=== PATIENT | female | born 1955 | race Two or more races ===

== ENCOUNTER 2018-05-25 20:43 | Emergency (ER) | payer OTHER ==
--- NOTE | 2018-05-25 21:17 | PDOC ---
Rapid Medical Evaluation Chief Complaint: Lightheaded Time Seen by Provider: 05/25/18 21:16 Medical Evaluation: Allergies Allergy/AdvReac Type Severity Reaction Status Date / Time No Known Allergies Allergy Verified 10/27/15 18:38 05/25/18 21:16 I performed a brief in person evaluation. CC: Dizziness HPI: Pt is a 63 Yo female with a hx of HTN who states over the past 2 days she has felt dizzy. PE: Skin: Clear Lungs: Clear Heart: RRR MS: Moves all extremities without difficulty Neuro: Alert Psych: Appropriate affect Pt has basic labs and EKG. Pt will go to main ED for further evaluation. Discharge Disposition - Diagnosis Dizziness - Referrals Referrals: Sara Galindo MD [Primary Care Provider] - - Patient Instructions - Post Discharge Activity
[2018-05-25 21:19] VITALS: TEMP 98.1; BMI 26.4
[2018-05-25 21:45] LABS: BASO % 0.4 % (0-2.0); EOS % 2.4 % (0-4.5); HEMATOCRIT 34.9 % (32.4-45.2); HEMOGLOBIN 12.2 GM/dL (10.7-15.3); MCH 29.5 pg (25.7-33.7); MCHC 35.1 g/dl (32.0-36.0); MEAN CELL VOLUME 84.3 fl (80-96); MONO % 6.6 % (3.8-10.2); NEUT % 48.6 % (42.8-82.8); PLATELET COUNT 206 K/MM3 (134-434); RBC 4.14 M/mm3 (3.60-5.2); RDW 14.8 % (11.6-15.6); WHITE BLOOD COUNT 7.5 K/mm3 (4.0-10.0)
[2018-05-25 22:02] LABS: URINE APPEARANCE CLEAR; URINE BILIRUBIN NEGATIVE (<2.0 mg/dL); URINE COLOR COLORLESS; URINE GLUCOSE (UA) NEGATIVE (NEGATIVE); URINE KETONE NEGATIVE (NEGATIVE); URINE LEUK ESTERASE NEGATIVE (NEGATIVE); URINE NITRITE NEGATIVE (NEGATIVE); URINE PROTEIN NEGATIVE (NEGATIVE); URINE UROBILINOGEN NEGATIVE mg/dL (0.2-1.0)
[2018-05-25 22:06] LABS: ALBUMIN 3.9 g/dl (3.4-5.0); ALK PHOS 70 U/L (45-117); ANION GAP 8 MMOL/L (8-16); BILIRUBIN,TOTAL 0.2 mg/dL (0.2-1); BLOOD UREA NITROGEN 12 mg/dL (7-18); CALCIUM 8.8 mg/dL (8.5-10.1); CHLORIDE 106 mmol/L (98-107); CO2 28 mmol/L (21-32); CREATININE 0.7 mg/dL (0.55-1.3); GLUCOSE,RANDOM 113 mg/dL (74-106); POTASSIUM 3.5 mmol/L (3.5-5.1); SGOT/AST 23 U/L (15-37); SGPT/ALT 33 U/L (13-61); SODIUM 142 mmol/L (136-145); TOT PROT 8.1 g/dl (6.4-8.2)
--- NOTE | 2018-05-25 22:56 | PDOC ---
History of Present Illness - General Chief Complaint: Lightheaded Stated Complaint: DIZZY Time Seen by Provider: 05/25/18 21:16 History Source: Patient - History of Present Illness Initial Comments: 05/25/18 23:45 63 year old female dizziness x 3 days worse with laying down, c/o numbness to left and leg x 3 days. denies Past History - Past Medical History Allergies/Adverse Reactions: Allergies Allergy/AdvReac Type Severity Reaction Status Date / Time No Known Allergies Allergy Verified 05/25/18 21:19 Home Medications: Ambulatory Orders Losartan 50Mg/Hctz 12.5MG [Hyzaar -] 1 tab PO DAILY 05/25/18 Metformin HCl [Metformin HCl ER] 500 mg PO BID 05/25/18 Ranitidine [Zantac -] 150 mg PO DAILY 05/25/18 COPD: No HTN: Yes - Suicide/Smoking/Psychosocial Hx Smoking History: Never smoked Have you smoked in the past 12 months: No Hx Alcohol Use: No Drug/Substance Use Hx: No Substance Use Type: None *Physical Exam - Vital Signs Last Vital Signs Temp Pulse Resp BP Pulse Ox 98.1 F 67 18 151/67 100 05/25/18 21:17 05/25/18 21:17 05/25/18 21:17 05/25/18 21:17 05/25/18 21:17 - Physical Exam General Appearance: Yes: Appropriately Dressed Respiratory/Chest: positive: Lungs Clear, Normal Breath Sounds Extremity: positive: Normal Capillary Refill, Normal Inspection, Normal Range of Motion Neurologic: positive: buyer agent II-XII NML intact, Fully Oriented, Alert, Normal Mood/ Affect, Normal Response, Motor Strength 5/5, Other (+ sara chacon pike). negative : Sensory Deficit Moderate Sedation - Procedure Monitoring Vital Signs: Procedure Monitoring Vital Signs Temperature 98.1 F 05/25/18 21:17 Pulse Rate 67 05/25/18 21:17 Respiratory Rate 18 05/25/18 21:17 Blood Pressure 151/67 05/25/18 21:17 O2 Sat by Pulse Oximetry (%) 100 05/25/18 21:17 ED Treatment Course - LABORATORY CBC & Chemistry Diagram: 05/25/18 21:33 05/25/18 21:33 - ADDITIONAL ORDERS Additional order review: Laboratory Results 05/25/18 05/25/18 21:46 21:33 Sodium 142 Potassium 3.5 Chloride 106 Carbon Dioxide 28 Anion Gap 8 BUN 12 Creatinine 0.7 Creat Clearance w eGFR > 60 Random Glucose 113 H Calcium 8.8 Total Bilirubin 0.2 AST 23 ALT 33 Alkaline Phosphatase 70 Creatine Kinase 266 H Creatine Kinase Index 2.1 CK-MB (CK-2) 5.6 H Troponin I < 0.02 Total Protein 8.1 Albumin 3.9 Urine Color Colorless Urine Appearance Clear Urine pH 6.0 Ur Specific [place] 1.004 L Urine Protein Negative Urine Glucose (UA) Negative Urine Ketones Negative Urine Blood Negative Urine Nitrite Negative Urine Bilirubin Negative Urine Urobilinogen Negative Ur Leukocyte Esterase Negative 05/25/18 21:33 RBC 4.14 MCV 84.3 MCHC 35.1 RDW 14.8 MPV 9.0 Neutrophils % 48.6 Lymphocytes % 42.0 H D Monocytes % 6.6 Eosinophils % 2.4 Basophils % 0.4 *DC/Admit/Observation/Transfer Diagnosis at time of Disposition: Dizziness - Referrals Referrals: Sara Galindo MD [Primary Care Provider] - - Patient Instructions - Post Discharge Activity
[2018-05-26 00:25] VITALS: BP 154/95; PULSE 78
[2018-05-26] MEDS ORDERED: MECLIZINE HCL 25 MG TABLET (FP) PO ONE ×2 (01:14→01:44)
--- NOTE | 2018-05-26 01:14 | PDOC ---
History of Present Illness - General Chief Complaint: Lightheaded Stated Complaint: DIZZY Time Seen by Provider: 05/25/18 21:16 - History of Present Illness Initial Comments: 05/26/18 01:12 63With history of hypertension and diabetes complaining of dizziness worse with laying down and left sided numbness for 3 days. Patient reports that the dizziness is worse that she is unable to lay down and sleep at night. Denies nausea, vomiting, headache, chest pain, abdominal pain, dysarthria, dysphasia, vision changes Past History - Past Medical History Allergies/Adverse Reactions: Allergies Allergy/AdvReac Type Severity Reaction Status Date / Time No Known Allergies Allergy Verified 05/25/18 21:19 Home Medications: Ambulatory Orders Losartan 50Mg/Hctz 12.5MG [Hyzaar -] 1 tab PO DAILY 05/25/18 Metformin HCl [Metformin HCl ER] 500 mg PO BID 05/25/18 Ranitidine [Zantac -] 150 mg PO DAILY 05/25/18 Meclizine HCl [Antivert -] 25 mg PO TID PRN #21 tablet 05/26/18 COPD: No HTN: Yes - Suicide/Smoking/Psychosocial Hx Smoking History: Never smoked Have you smoked in the past 12 months: No Information on smoking cessation initiated: No Hx Alcohol Use: No Drug/Substance Use Hx: No Substance Use Type: None *Physical Exam - Vital Signs Last Vital Signs Temp Pulse Resp BP Pulse Ox 98.1 F 78 18 154/95 99 05/25/18 21:17 05/26/18 00:24 05/25/18 21:17 05/26/18 00:24 05/25/18 23:39 - Physical Exam General Appearance: Yes: Appropriately Dressed HEENT: positive: Other (+ sara chacon pike) Respiratory/Chest: positive: Lungs Clear Moderate Sedation - Procedure Monitoring Vital Signs: Procedure Monitoring Vital Signs Temperature 98.1 F 05/25/18 21:17 Pulse Rate 78 05/26/18 00:24 Respiratory Rate 18 05/25/18 21:17 Blood Pressure 154/95 05/26/18 00:24 O2 Sat by Pulse Oximetry (%) 99 05/25/18 23:39 ED Treatment Course - LABORATORY CBC & Chemistry Diagram: 05/25/18 21:33 05/25/18 21:33 - ADDITIONAL ORDERS Additional order review: Laboratory Results 05/25/18 05/25/18 21:46 21:33 Sodium 142 Potassium 3.5 Chloride 106 Carbon Dioxide 28 Anion Gap 8 BUN 12 Creatinine 0.7 Creat Clearance w eGFR > 60 Random Glucose 113 H Calcium 8.8 Total Bilirubin 0.2 AST 23 ALT 33 Alkaline Phosphatase 70 Creatine Kinase 266 H Creatine Kinase Index 2.1 CK-MB (CK-2) 5.6 H Troponin I < 0.02 Total Protein 8.1 Albumin 3.9 Urine Color Colorless Urine Appearance Clear Urine pH 6.0 Ur Specific [place] 1.004 L Urine Protein Negative Urine Glucose (UA) Negative Urine Ketones Negative Urine Blood Negative Urine Nitrite Negative Urine Bilirubin Negative Urine Urobilinogen Negative Ur Leukocyte Esterase Negative 05/25/18 21:33 RBC 4.14 MCV 84.3 MCHC 35.1 RDW 14.8 MPV 9.0 Neutrophils % 48.6 Lymphocytes % 42.0 H D Monocytes % 6.6 Eosinophils % 2.4 Basophils % 0.4 - RADIOLOGY Radiology Studies Ordered: Category Date Time Status HEAD CT WITHOUT CONTRAST [CT] Stat CT Scan 05/26/18 01:00 Taken Medical Decision Making - Medical Decision Making 05/26/18 01:1 CT head: 1.. Negative for acute fracture/dislocation of the cervical spine. 2. Multilevel degenerative disc disease. Neural foraminal and spinal canal stenosis is noted. 3. Thyromegaly with hypodense nodules right and left lobe of the gland. Follow- up nonemergent thyroid ultrasound recommended. *DC/Admit/Observation/Transfer Diagnosis at time of Disposition: Dizziness - Discharge Dispostion Disposition: HOME - Prescriptions Prescriptions: Meclizine HCl [Antivert -] 25 mg PO TID PRN #21 tablet PRN Reason: Vertigo - Referrals Referrals: Sara Galindo MD [Primary Care Provider] - Raffi Resendiz MD [Staff Physician] - Call tomorrow Jamie Marie MD [Staff Physician] - Call tomorrow - Patient Instructions Printed Discharge Instructions: Benign Paroxysmal Positional Vertigo Additional Instructions: drink plenty of fluids take your b/p medication follow up with your doctor as soon as possible - Post Discharge Activity Forms/Work/School Notes: Back to Work
--- NOTE | 2018-05-26 13:08 | EKG ---
Test Reason : Blood Pressure : / mmHG Vent. Rate : 063 BPM Atrial Rate : 063 BPM P-R Int : 144 ms QRS Dur : 082 ms QT Int : 422 ms P-R-T Axes : 057 014 043 degrees QTc Int : 431 ms NORMAL SINUS RHYTHM NORMAL ECG WHEN COMPARED WITH ECG OF 27-OCT-2015 19:17, NO SIGNIFICANT CHANGE WAS FOUND Confirmed by PENG NUNES MD ([id number]) on 05/26/2018 1:08:24 PM Referred By: Confirmed By:PENG NUNES MD
== END 2018-05-26 02:45 | disposition home or self-care (01) ==
LOC: JER 20:43
DX: H81.10 Benign paroxysmal vertigo, unspecified ear (principal); I10 Essential (primary) hypertension; E11.9 Type 2 diabetes mellitus without complications; Z79.84 Long term (current) use of oral hypoglycemic drugs
CPT/HCPCS: 36415; 70450-TC; 80053; 81003; 82550; 82553; 84484; 85025; 93005; 93010; 99285-25

== ENCOUNTER 2020-01-03 19:29 | Emergency (ER) | payer OTHER ==
[2020-01-03 19:39] VITALS: BP 96/60; PULSE 74; TEMP 98.6; BMI 24.9
--- NOTE | 2020-01-03 19:50 | PDOC ---
Rapid Medical Evaluation Chief Complaint: Cold Symptoms Time Seen by Provider: 01/03/20 19:40 Medical Evaluation: Allergies Allergy/AdvReac Type Severity Reaction Status Date / Time No Known Allergies Allergy Verified 05/25/18 21:19 Vital Signs Temp Pulse Resp BP Pulse Ox 98.6 F 74 20 96/60 96 01/03/20 19:36 01/03/20 19:36 01/03/20 19:36 01/03/20 19:36 01/03/20 19:36 01/03/20 19:48 HPI: COVID-19 CDC guideline data points: The patient is a 64yo F presents with suspected COVID-19 with associated symptoms of subjective fever complicated by this/these comorbidities: NIDDM. ROS: NEGATIVE: difficulty breathing, shortness of breath, chest pain, lightheadedness, dizziness, nausea, vomiting and diarrhea. Other 12 point ROS reviewed and negative. Exam: General: NAD, Well-Appearing, Awake, Alert Oriented x3. Vital signs stable. ENT: No rhinorrhea or nasal congestion. Neck: FROM, no midline tenderness. Lungs: Clear to auscultation bilaterally without wheezes, rhonchi or rales. Normal excursion. Patient is able to speak in full sentences. Heart: HR: 74. Regular rhythm, S1-S2 present, no murmurs rubs or gallops. Abdomen: Non-distended. MSK/Extremities: No decrease ROM, No obvious deformities. No obvious cyanosis noted. Neuro: Normal Gait, Cranial Nerves II through XII Grossly Intact. Skin: No obvious rashes, bruising. Color Normal Appearing. Assessment/Plan: subjective Cough Patient has a history of this/these comorbidities: NIDDM, denies recent travel and known COVID exposure. Patient does not meet testing criteria at this time. ASSESSMENT: Denies recent travel and known Covid exposure. Treatment: Covid-19 testing Discharge Discharge Disposition - Diagnosis Counseled about COVID-19 virus infection Upper respiratory infection Qualifiers: URI type: unspecified viral URI Qualified Code(s): J06.9 - Acute upper respiratory infection, unspecified - Discharge Dispostion Disposition: HOME Condition at time of disposition: Stable Decision to Admit order: No - Referrals Referrals: Hunter Gray MD [Primary Care Provider] - - Patient Instructions Printed Discharge Instructions: DI for Viral Upper Respiratory Infection -- Adult, [facility]-Coronavirus Instructions, [facility] COVID-19 Isolation Protocol - Post Discharge Activity
== END 2020-01-03 20:11 | disposition home or self-care (01) ==
LOC: JERFT 19:29
DX: U07.1 COVID-19 (principal); J06.9 Acute upper respiratory infection, unspecified
CPT/HCPCS: 99283-25; U0003

== ENCOUNTER 2024-11-23 23:11 | Emergency (ER) | payer OTHER ==
[2024-11-23 23:21] VITALS: BP 141/78; PULSE 78; RESP 18; TEMP 98.8; BMI 26.8
[2024-11-24] MEDS ORDERED: AMOX TR/POT CLAV 875MG/125MG TABLETS (FP) ONE (00:29)
[2024-11-24] MEDS ORDERED: RABIES VACCINE (PCEC)/PF 2.5 UNIT/VIAL IM ONE (00:30)
[2024-11-24] MEDS ORDERED: DIPHTH,PERTUSS(ACELL),TET 0.5 ML DISP.SYRIN IM ONE (00:30)
[2024-11-24] MEDS: DIPHTH,PERTUSS(ACELL),TET 0.5 ML DISP.SYRIN IM ONE (00:37)
[2024-11-24] MEDS: RABIES VACCINE (PCEC)/PF 2.5 UNIT/VIAL IM ONE (00:37)
[2024-11-24] MEDS: AMOX TR/POT CLAV 875MG/125MG TABLETS (FP) PO ONE (00:37)
[2024-11-24 01:02] LABS: HCV DIAGNOSTIC IN-HOUSE W/RFLX NON-REACTIVE (NONREACTIVE); HIV INTERPRETATION NEGATIVE (NEGATIVE)
[2024-11-24] MEDS: RABIES IMMUNE GLOBULIN 300 UNITS/1 ML VIAL IM ONE (01:22)
== END 2024-11-24 01:22 | disposition home or self-care (01) ==
LOC: JER 23:11
PROC: 3E0234Z Introduction of Serum, Toxoid and Vaccine into Muscle, Percutaneous Approach (ICD-10-PCS; principal; 2024-11-24)
PROC: 3E0234Z Introduction of Serum, Toxoid and Vaccine into Muscle, Percutaneous Approach (ICD-10-PCS; 2024-11-24)
DX: S90.812A Abrasion, left foot, initial encounter (principal); Z23 Encounter for immunization; W55.03XA Scratched by cat, initial encounter
CPT/HCPCS: 36415; 86803; 87389; 90375; 90471; 90675; 90715; 99284-25

== ENCOUNTER 2024-12-08 21:29 | Emergency (ER) | payer OTHER ==
[2024-12-08 21:36] VITALS: BP 156/74; PULSE 56; RESP 20; TEMP 98.1; BMI 24.9
[2024-12-08] MEDS ORDERED: RABIES VACCINE (PCEC)/PF 2.5 UNIT/VIAL IM ONE (22:43)
[2024-12-08] MEDS: RABIES VACCINE (PCEC)/PF 2.5 UNIT/VIAL IM ONE (23:07)
== END 2024-12-08 23:19 | disposition home or self-care (01) ==
LOC: JERFT 21:29
PROC: 3E0234Z Introduction of Serum, Toxoid and Vaccine into Muscle, Percutaneous Approach (ICD-10-PCS; principal; 2024-12-08)
DX: Z23 Encounter for immunization (principal)
CPT/HCPCS: 90675; 99281-25